=== PATIENT | female | born 1965 | race Native Hawaiian/Other Pacific Islander ===

== ENCOUNTER 2021-12-14 18:19 | Emergency (ER) | payer OTHER ==
[2021-12-14] MEDS ORDERED: HYDROcodone/ACETAMINOPHEN 5-325 MG TAB PO ONE (20:12)
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
[2021-12-14 21:05] VITALS: BP 141/88
== END 2021-12-14 21:46 | disposition home or self-care (01) ==
LOC: ED 18:19
DX: M25.551 Pain in right hip (principal); M25.511 Pain in right shoulder; M25.512 Pain in left shoulder; M25.571 Pain in right ankle and joints of right foot; Z79.899 Other long term (current) drug therapy; V87.7XXA Person injured in collision between other specified motor vehicles (traffic), initial encounter; Y93.89 Activity, other specified; Y92.488 Other paved roadways as the place of occurrence of the external cause; Y99.8 Other external cause status
CPT/HCPCS: 99284